=== PATIENT | female | born 1950 | race Caucasian/White ===

== ENCOUNTER 2021-01-21 09:25 | Emergency (ER) | payer MEDICARE, OTHER, SELFPAY ==
--- NOTE | ~2021-01-21 | XR_ITS ---
EXAMINATION: XR elbow LT 2V EXAM DATE: 01/21/2021 09:53 INDICATION: Left elbow injury, pain, initial encounter. TECHNIQUE: Left elbow frontal, lateral with flexion, and oblique projections obtained and reviewed. There is no prior study for comparison. FINDINGS: There is acute posttraumatic left supracondylar fracture with anterior superior displacemen t of the medial epicondyle, retraction. There is anterior angulation. Distal aspect of the humerus at the fracture fragments appears quite close to the skin surface. Clinical correlation for closed vers us open fracture. There is an coronoid process fracture which is age-indeterminate. 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 IMPRESSION: 1. Acute left supracondylar fracture with displacement, angulation. 2. Age-indeterminate coronoid process fracture. Reviewed, dictated and finalized at location A.
[2021-01-21 09:23] VITALS: BP 95/82; PULSE 73; RESP 19; TEMP 36.3; O2SAT 100
--- NOTE | 2021-01-21 09:39 | ED.FALL ---
HPI - Fall General Chief Complaint: Fall <CISCO Arriola Last Filed: 01/21/21 10:56> Stated Complaint: fall - left elbow injury <CISCO Arriola Last Filed: 01/21/21 10:56> Time Seen by Provider: 01/21/21 09:30 <CISCO Arriola Last Filed: 01/21/21 10:56> Source: patient <CISCO Arriola Last Filed: 01/21/21 10:56> Mode of arrival: EMS <CISCO Arriola Last Filed: 01/21/21 10:56> Limitations: no limitations <CISCO Arriola Last Filed: 01/21/21 10:56> History of Present Illness HPI Narrative: This is a 70-year-old female that presents to the emergency department for left elbow pain after a fall today. Reports she missed a step causing her to fall. Reports landing on her left elbow. Reports history of fracture to this elbow in the past. Patient holding elbow in position of comfort. Is unable to straighten arm due to pain. Reports she does not live here, is currently visiting. Denies prodromal symptoms, other injuries, hitting her head, loss of consciousness, or numbness. <CISCO Arriola Last Filed: 01/21/21 10:56> Related Data Allergies/Adverse Reactions: Allergies Allergy/AdvReac Type Severity Reaction Status Date / Time ciprofloxacin [From Cipro] Allergy Rash Verified 01/21/21 09:28 <CISCO Arriola Last Filed: 01/21/21 10:56> Review of Systems Review of Systems: Narrative: CONSTITUTIONAL: Denies fever CARDIOVASCULAR: Denies chest pain RESPIRATORY: Denies dyspnea. GASTROINTESTINAL: Denies vomiting MUSCULOSKELETAL: Reports joint pain, and myalgia. NEUROLOGIC: Denies numbness <CISCO Arriola Last Filed: 01/21/21 10:56> All systems reviewed & are unremarkable except as noted in HPI and below <CISCO Arriola Last Filed: 01/21/21 10:56> [facility] Past Medical History Medical History: Medical History (Updated 01/21/21 @ 10:25 by Carmella Ku PA-C) History of Crohn's disease History of depression History of hyperlipidemia <Carmella Ku PA-C - Last Filed: 01/21/21 10:56> Social History Social History: Social History (Updated 01/21/21 @ 09:44 by Carmella Ku PA-C) Smoking status: Never smoker Gender identity (if verbalized by the patient): Female <Carmella Ku PA-C - Last Filed: 01/21/21 10:56> Exam Narrative: Exam Narrative: GENERAL: Elderly, well-nourished, and in no acute distress. HEAD: Normocephalic, atraumatic. EYES: PERRLA and EOMI. ENT: Nares clear, no rhinorrhea or epistaxis. Mucous membranes moist. Oropharynx without tonsillar hypertrophy exudate or other lesions. Bilateral TMs pearly moy non-bulging NECK: Supple. No adenopathy or masses. No midline cervical spine tenderness CHEST: Clear to auscultation. No respiratory distress. No wheezes rales or rhonchi HEART: Regular rate and rhythm. No murmur heard. Normal peripheral pulses. BACK: No midline thoracic or lumbar spine tenderness EXTREMITIES: Normal range of motion, except decreased range of motion in the left elbow due to pain. No obvious deformity. Small, superficial abrasion to the left elbow. Normal radial pulses. Normal sensation SKIN: Warm, dry, no rash. NEURO: No focal deficits. Alert and oriented x3. Cranial nerves II through XII grossly intact PSYCH: Normal mood and affect <Carmella uK PA-C - Last Filed: 01/21/21 10:56> Course Consultations Consultation #1: Spoke with Dr. Nettles about patient and work-up. Patient will be placed in a long-arm posterior. <Carmella Ku PA-C - Last Filed: 01/21/21 10:56> Date: 01/21/21 <Carmella Ku PA-C - Last Filed: 01/21/21 10:56> Time: 10:24 <CISCO Arriola Last Filed: 01/21/21 10:56> Vital Signs Vital signs: Vital Signs Temperature 97.4 F L 01/21/21 09:23 Pulse Rate 73 01/21/21 09:23 Respiratory Rate 19 01/21/21 09:23 Blood Pressure 95/82 L 01/21/21 09:23 Pulse Oximetry 10
[2021-01-21] MEDS: ONDANSETRON INJ 4 MG/2 ML VIAL IV PUSH (09:50)
[2021-01-21] MEDS: fentaNYL CITRATE INJ (*CRX) 100 MCG/2 ML VIAL 25 MCG IV PUSH (09:51)
[2021-01-21] MEDS: HYDROcodone/acetaminophen (*CRX) 5-325 MG TABLET 1 TAB PO (10:46)
[2021-01-21 10:48] VITALS: BP 116/76; PULSE 74; RESP 18; O2SAT 100
== END 2021-01-21 11:00 | disposition home or self-care (01) ==
PROVIDERS: Emergency Provider General Practice
DX: S42.412A Displaced simple supracondylar fracture without intercondylar fracture of left humerus, initial encounter for closed fracture (principal); K50.90 Crohn's disease, unspecified, without complications; E78.5 Hyperlipidemia, unspecified; W10.9XXA Fall (on) (from) unspecified stairs and steps, initial encounter
CPT/HCPCS: 29105; 73070; 96374; 96375; 99284; A4565; A9270; J2405; J3010